=== PATIENT | male | born 2005 | race Caucasian/White ===

== ENCOUNTER 2024-10-06 23:26 | Emergency (ER) | payer SELFPAY ==
[~2024-10-06] VITALS: Ht 180.3 cm; Wt 84.0 kg
[2024-10-06 23:32] VITALS: PULSE 134; O2SAT 97
[2024-10-06 23:33] VITALS: BP 144/88; RESP 22; TEMP 36.7; O2SAT 99
== END 2024-10-07 02:01 | disposition left against medical advice (07) ==
LOC: ER 23:26
DX: F16.10 Hallucinogen abuse, uncomplicated (principal)
CPT/HCPCS: 99281